=== PATIENT | male | born 1970 | race Caucasian/White ===

== ENCOUNTER 2021-08-23 13:25 | Observation (INO) ==
[2021-08-23] MEDS ORDERED: ASPIRIN 81 MG CHEW PO STA (14:21)
--- NOTE | 2021-08-23 14:21 | Emergency Department Note ---
History of Present Illness General Chief complaint: Chest Pain Stated complaint: CHEST PAIN Time Seen by Provider: 08/23/21 14:06 Source: patient History of Present Illness Provider complaint: Chest pain Onset (ago): day(s) 3 Location: chest Radiation: non-radiation Pain Consistency: + intermittent and + now resolved Maximum Pain Intensity: 10 Quality: + other (Tightness) Relieved By: + rest Exacerbated By: + other (Activity) Associated symptoms: + other (Exhaustion); no cough, no fever/chills, no nausea/vomiting or no shortness of breath This is a 51-year-old male who presents with chest discomfort intermittently for the past 3 days. He states it feels like a tightness across his chest without radiation. He rates it a 10 out of 10 in severity at its worst. Currently he states it is completely resolved. It seems to be worse with activity and better with rest. It is associated with feeling of exhaustion and fatigue. He states he felt this way 8 years ago when he had endocarditis. The cause of his endocarditis is unclear. He denies any IVDA or immunocompromise. He denies any recent illness, fever, cough or cold symptoms, shortness of breath, abdominal pain, vomiting, diarrhea or urinary symptoms. He has had no swelling to this legs. He does state that his father had heart problems starting in his late 50s and his uncle also had heart problem in his late 50s. Home Medications Medication Instructions Recorded Confirmed Type omeprazole 40 mg capsule,delayed 40 mg PO QAM 04/16/20 08/23/21 History release amitriptyline 10 mg tablet 10 mg PO HS PRN 08/23/21 08/23/21 History escitalopram oxalate 10 mg tablet 10 mg PO DAILY 08/23/21 08/23/21 History tamsulosin 0.4 mg capsule 0.4 mg PO HS 08/23/21 08/23/21 History Allergies Allergy/AdvReac Type Severity Reaction Status Date / Time No Known Allergies Allergy Verified 08/23/21 14:33 Past Med/Surg History Medical History (Updated 08/23/21 @ 21:16 by Shane Vera MD) Anxiety and depression Endocarditis GERD (gastroesophageal reflux disease) Surgical History H/O hand surgery LEFT MIDDLE FINGER PINNING History of esophagogastroduodenoscopy (EGD) History of tooth extraction Hx of vasectomy Nausea and vomiting after administration of anesthetic agent [place] teeth removed Family History Mother Family history of diabetes mellitus Social History Smoking Status: Current some day smoker Cigarettes Per Day: 2, 2-3 nights a week; Second Hand Exposure: Yes ( A CHILD); Hx Alcohol Use: Yes Alcohol type: hard liquor Hx Substance Use: No Preferred Language: Czech Communication Ability: Effective Sld Teacher Required: No Beliefs That Will Affect Care: None Current Living Situation: Spouse Current Living Situation Comment: with Feels Safe at Home: Yes Safety Concerns: Feels Safe At This Time Assistive Devices: Glasses Review of Systems See HPI for pertinent positives & negatives. and A total of 10 systems reviewed and were otherwise negative Physical Exam Vital Signs Vital Signs - 24 hr 08/23/21 13:30 08/23/21 15:21 08/23/21 15:30 Temperature 36.1 C L Temperature Source Temporal Artery Scan Pulse Rate 59 L Pulse Rate [Apical] 55 L 49 L Respiratory Rate 18 16 22 Respiratory Effort / Characteristics Non-Labored Respiratory Depth Normal Respiratory Pattern Regular Blood Pressure 141/88 H Blood Pressure [Left Arm] 138/85 135/98 Blood Pressure Mean 105 Blood Pressure Mean [Left Arm] 102 110 Blood Pressure Position Sitting Blood Pressure Position [Left Arm] Pulse Oximetry 98 97 Oxygen Delivery Method Room Air Room Air Sepsis Recent Fever Within 48 Hours No Sepsis New/Unexplained Change in Mental Status No Sepsis Action Taken by Nursing No Action Required 08/23/21 16:54 Temperature Temperature Source Pulse Rate Pulse Rate [Apical] 51 L Respiratory Rate 15 Respiratory Effort / Characteristics Non-Labored Spontaneous Respiratory Depth Normal Respiratory Pattern Regular Blood Pressure Blood Pressure [Left Arm] 141/89 H Blood Pressure Mean Blood Pressure Mean [Left Arm] 106 Blood Pressure Position Blood Pressure Position [Left Arm] Sitting Pulse Oximetry 97 Oxygen Delivery Method Room Air Sepsis Recent Fever Within 48 Hours Sepsis New/Unexplained Change in Mental Status Sepsis Action Taken by Nursing Constitutional: Vital signs reviewed. Eyes: Pupils are equal round reactive to light. Conjunctiva are noninjected. ENT: Pharynx is clear without erythema or exudate. Mucous membranes are moist. Neck supple without meningeal signs. Respiratory: Clear to auscultation bilaterally. Breath sounds are equal bilaterally. Cardiovascular: Regular rate and rhythm. No rubs or gallops. No murmurs are noted. GI: Soft, nondistended and nontender. Bowel sounds are present. Musculoskeletal: No peripheral edema. No lower extremity tenderness. Integumentary: No cyanosis. or jaundice. Neurological: The patient is awake and alert. No focal deficits. Psychiatric: Normal affect. Not anxious appearing. Course Administered Medications Enoxaparin Sodium (Enoxaparin Inj 40 Mg/0.4 Ml Syr) 40 mg SQ Q24H HELLEN Stop: 09/22/21 19:19 Last Admin: 08/23/21 20:10 Dose: 40 mg Documented by: [id number] Escitalopram Oxalate (Escitalopram Oxalate 10 Mg Tab) 10 mg PO HS HELLEN Stop: 09/22/21 20:59 Last Admin: 08/23/21 20:29 Dose: 10 mg Documented by: [id number] Tamsulosin HCl (Tamsulosin Hcl 0.4 Mg Cap) 0.4 mg PO HS HELLEN Stop: 09/22/21 20:59 Last Admin: 08/23/21 20:10 Dose: 0.4 mg Documented by: [id number] Discontinued Medications Aspirin (Aspirin 81 Mg Chew) 324 mg PO NOW STA Stop: 08/23/21 14:22 Last Admin: 08/23/21 14:50 Dose: 324 mg Documented by: [id number] Medical Decision Making Differential Diagnosis Unstable angina, [place], anxiety, GERD, endocarditis Medical Records Attestation: I reviewed the patient's medical records. I did perform a limited focused review of portions of the patient's old chart on the electronic medical record. The patient has had no recent pertinent visits to this hospital. Home Medications Current Medication List: was personally reviewed by me Laboratory Data Attestation: I reviewed the patient's lab results. Result diagrams: 08/23/21 13:48 08/23/21 13:48 Lab Results 08/23/21 08/23/21 08/23/21 Range/Units 13:48 13:48 13:48 WBC 5.99 (4.8-10.8) K/uL RBC 4.44 L (4.7-6.1) M/uL Hgb 14.2 (14.0-18.0) g/dL Hct 40.7 L (42-52) % MCV 91.7 (80-100) fL MCH 32.0 (25-34) pg MCHC 34.9 (32-36) g/dL RDW Std Deviation 44.6 (36.4-46.3) fL RDW Coeff of [place] 13.3 (11.5-14.5) % Plt Count 210 (130-400) K/uL MPV 10.5 H (7.4-10.4) fL Immature Gran % (Auto) 0.3 % Neut % (Auto) 49.0 % Lymph % (Auto) 37.2 % [place] % (Auto) 9.2 % Eos % (Auto) 3.5 % Baso % (Auto) 0.8 % Neut # (Auto) 2.93 (1.4-6.5) K/uL Lymph # (Auto) 2.23 (1.2-3.4) K/uL [place] # (Auto) 0.55 (0.11-0.59) K/uL Eos # (Auto) 0.21 (0-0.5) K/uL Baso # (Auto) 0.05 (0-0.2) K/uL Immature Gran # (Auto) 0.02 (0.00-0.02) K/uL ESR < 1 (0-20) mm/hr D-Dimer (0-500) ug/L FEU Sodium 140 (136-145) mmol/L Potassium (3.5-5.1) mmol/L Chloride 107 (98-107) mmol/L Carbon Dioxide 23 (21-32) mmol/L Anion Gap 10.0 (3-11) BUN 16 (7-18) mg/dl Creatinine 1.03 (0.6-1.4) mg/dl Est Cr Clr Drug Dosing 89.1 ml/min Est GFR ( Amer) 97.0 ml/min Est GFR (Non-Af Amer) 83.7 ml/min BUN/Creatinine Ratio 15.1 (10-20) Glucose 102 H (70-99) mg/dl Calcium 8.8 (8.5-10.1) mg/dl Total Bilirubin 0.4 (0.2-1) mg/dl AST (15-37) U/L ALT 29 (12-78) U/L Alkaline Phosphatase 69 (45-117) U/L Troponin I < 0.015 (0-0.045) ng/ml C-Reactive Protein (0-0.29) mg/dl Total Protein 6.6 (6.4-8.2) gm/dl Albumin 3.5 (3.4-5.0) gm/dl Globulin 3.1 (2.5-4.0) gm/dl Albumin/Globulin Ratio 1.1 (0.9-2) Lipase 130 (73-393) U/L COVID-19 Eval Order SARS-CoV-2 (PCR) (Negative) 08/23/21 08/23/21 08/23/21 Range/Units 13:48 13:48 14:52 WBC (4.8-10.8) K/uL RBC (4.7-6.1) M/uL Hgb (14.0-18.0) g/dL Hct (42-52) % MCV (80-100) fL MCH (25-34) pg MCHC (32-36) g/dL RDW Std Deviation (36.4-46.3) fL RDW Coeff of [place] (11.5-14.5) % Plt Count (130-400) K/uL MPV (7.4-10.4) fL Immature Gran % (Auto) % Neut % (Auto) % Lymph % (Auto) % [place] % (Auto) % Eos % (Auto) % Baso % (Auto) % Neut # (Auto) (1.4-6.5) K/uL Lymph # (Auto) (1.2-3.4) K/uL [place] # (Auto) (0.11-0.59) K/uL Eos # (Auto) (0-0.5) K/uL Baso # (Auto) (0-0.2) K/uL Immature Gran # (Auto) (0.00-0.02) K/uL ESR (0-20) mm/hr D-Dimer 270 (0-500) ug/L FEU Sodium (136-145) mmol/L Potassium (3.5-5.1) mmol/L Chloride (98-107) mmol/L Carbon Dioxide (21-32) mmol/L Anion Gap (3-11) BUN (7-18) mg/dl Creatinine (0.6-1.4) mg/dl Est Cr Clr Drug Dosing ml/min Est GFR ( Amer) ml/min Est GFR (Non-Af Amer) ml/min BUN/Creatinine Ratio (10-20) Glucose (70-99) mg/dl Calcium (8.5-10.1) mg/dl Total Bilirubin (0.2-1) mg/dl AST (15-37) U/L ALT (12-78) U/L Alkaline Phosphatase (45-117) U/L Troponin I (0-0.045) ng/ml C-Reactive Protein < 0.29 (0-0.29) mg/dl Total Protein (6.4-8.2) gm/dl Albumin (3.4-5.0) gm/dl Globulin (2.5-4.0) gm/dl Albumin/Globulin Ratio (0.9-2) Lipase (73-393) U/L COVID-19 Eval Order Covid19 at [facility] SARS-CoV-2 (PCR) (Negative) 08/23/21 Range/Units 14:52 WBC (4.8-10.8) K/uL RBC (4.7-6.1) M/uL Hgb (14.0-18.0) g/dL Hct (42-52) % MCV (80-100) fL MCH (25-34) pg MCHC (32-36) g/dL RDW Std Deviation (36.4-46.3) fL RDW Coeff of [place] (11.5-14.5) % Plt Count (130-400) K/uL MPV (7.4-10.4) fL Immature Gran % (Auto) % Neut % (Auto) % Lymph % (Auto) % [place] % (Auto) % Eos % (Auto) % Baso % (Auto) % Neut # (Auto) (1.4-6.5) K/uL Lymph # (Auto) (1.2-3.4) K/uL [place] # (Auto) (0.11-0.59) K/uL Eos # (Auto) (0-0.5) K/uL Baso # (Auto) (0-0.2) K/uL Immature Gran # (Auto) (0.00-0.02) K/uL ESR (0-20) mm/hr D-Dimer (0-500) ug/L FEU Sodium (136-145) mmol/L Potassium (3.5-5.1) mmol/L Chloride (98-107) mmol/L Carbon Dioxide (21-32) mmol/L Anion Gap (3-11) BUN (7-18) mg/dl Creatinine (0.6-1.4) mg/dl Est Cr Clr Drug Dosing ml/min Est GFR ( Amer) ml/min Est GFR (Non-Af Amer) ml/min BUN/Creatinine Ratio (10-20) Glucose (70-99) mg/dl Calcium (8.5-10.1) mg/dl Total Bilirubin (0.2-1) mg/dl AST (15-37) U/L ALT (12-78) U/L Alkaline Phosphatase (45-117) U/L Troponin I (0-0.045) ng/ml C-Reactive Protein (0-0.29) mg/dl Total Protein (6.4-8.2) gm/dl Albumin (3.4-5.0) gm/dl Globulin (2.5-4.0) gm/dl Albumin/Globulin Ratio (0.9-2) Lipase (73-393) U/L COVID-19 Eval Order SARS-CoV-2 (PCR) NEGATIVE (Negative) Imaging Data Radiologist's Impression: Chest X-Ray 08/23/21 14:18 XR chest 1V portable CLINICAL HISTORY: Atypical chest pain TECHNIQUE: Single frontal radiograph of the chest was obtained. Comparison: Comparison is made to chest one view 03/21/2012 FINDINGS: No lines and tubes are seen. The cardiomediastinal silhouette is normal. The lungs are clear. No evidence of pleural effusion or pneumothorax. IMPRESSION: No acute chest disease. ACT 112: Negative or not required by law. Electronically signed by: Jules Wells M.D. 08/23/2021 2:48 PM ECG Data Attestation: I personally reviewed and interpreted this ECG as follows: Indication: + chest pain Rate (beats per minute): 54 Rhythm: + sinus bradycardia ECG [place]: + Normal ECG ST segments: no ST elevation ECG Findings: no PVCs Comparison ECG Date: from (April 15, 2020) Change: no significant change MDM Narrative I did evaluate the patient as noted above. Patient is presenting with chest tightness intermittently for the past 3 days. It is worse with activity. He states that he feels exhausted similar to when he had endocarditis 8 years ago. IV access was established. I did place an order for continuous cardiac monitoring. The monitor showed sinus bradycardia at a rate of 59 bpm. did order and personally review the patient's 12-lead EKG as described above. He has no acute ischemic findings. I did order and personally reviewed the images of the patient's chest x-ray as described above. There is no evidence of pneumonia. I did order blood cultures. He was given aspirin p.o. I did order and review the patient's blood work as noted in the electronic medical record. CBC does not demonstrate leukocytosis or left shift. ESR is negative. Electrolytes are unremarkable. Troponin is negative. C-reactive protein is negative. LFTs and lipase are unremarkable. Covid screening testing is neg ative. I did reassess the patient. I did discuss the test results with him. He will be hospitalized for repeat cardiac biomarkers and further evaluation. I did discuss the case with the hospitalist and field nurse case manager. Impression & Plan Acute chest pain Discharge Plan Visit Data Chief Complaint: Chest Pain Stated Complaint: CHEST PAIN ED Provider: Shane Vera Discharge Problem: Acute chest pain Patient Disposition: Admitted As Inpatient Discharge Instructions Interventions: ED Discharge Assessment Last Done: 08/23/21 18:27
[2021-08-23 14:26] LABS: Basophils # (auto) 0.05 K/uL (0-0.2); Basophils % (auto) 0.8 %; Eosinophils # (auto) 0.21 K/uL (0-0.5); Eosinophils % (auto) 3.5 %; Hematocrit (blood only) 40.7 % (42-52); Hemoglobin 14.2 g/dL (14.0-18.0); Immature Granulocytes # (auto) 0.02 K/uL (0.00-0.02); Immature Granulocytes % (auto) 0.3 %; Lymphocytes # (auto) 2.23 K/uL (1.2-3.4); Lymphocytes % (auto) 37.2 %; Mean Corpuscular Hgb Conc 34.9 g/dL (32-36); Mean Corpuscular Volume 91.7 fL (80-100); Mean Platelet Volume 10.5 fL (7.4-10.4); Monocytes # (auto) 0.55 K/uL (0.11-0.59); Monocytes % (auto) 9.2 %; Neutrophils # (auto) 2.93 K/uL (1.4-6.5); Platelet Count 210 K/uL (130-400); RDW Coefficient of Variation 13.3 % (11.5-14.5); RDW Standard Deviation 44.6 fL (36.4-46.3); Red Blood Count 4.44 M/uL (4.7-6.1); White Blood Count 5.99 K/uL (4.8-10.8)
--- NOTE | 2021-08-23 14:49 | XRay Report ---
XR chest 1V portable CLINICAL HISTORY: Atypical chest pain TECHNIQUE: Single frontal radiograph of the chest was obtained. Comparison: Comparison is made to chest one view 03/21/2012 FINDINGS: No lines and tubes are seen. The cardiomediastinal silhouette is normal. The lungs are clear. No evid ence of pleural effusion or pneumothorax. IMPRESSION: No acute chest disease. ACT 112: Negative or not required by law. Electronically signed by: Jules Wells M.D. 08/23/2021 2:48 PM
[2021-08-23 15:52] LABS: Alanine Aminotransferase 29 U/L (12-78); Albumin Globulin Ratio 1.1 (0.9-2); Albumin Level 3.5 gm/dl (3.4-5.0); Alkaline Phosphatase 69 U/L (45-117); BUN Creatinine Ratio 15.1 (10-20); Bilirubin,Total 0.4 mg/dl (0.2-1); Blood Urea Nitrogen 16 mg/dl (7-18); Calcium 8.8 mg/dl (8.5-10.1); Carbon Dioxide 23 mmol/L (21-32); Chloride 107 mmol/L (98-107); Creatinine Clr Calc Pharmacy 89.1 ml/min; Est GFR (Non-African American) 83.7 ml/min; Globulin 3.1 gm/dl (2.5-4.0); Glucose 102 mg/dl (70-99); Lipase 130 U/L (73-393); Sodium 140 mmol/L (136-145); Total Protein 6.6 gm/dl (6.4-8.2); Troponin I < 0.015 ng/ml (0-0.045)
--- NOTE | 2021-08-23 16:16 | History & Physical Report ---
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 Feels similar to his prior episode of endocarditis. Does not have history of immunocompromise or drug abuse. Chest pain, per patient history of similar feeling with endocarditis No leukocytosis, afebrile Troponin negative EKG without acute findings Covid negative Afebrile CRP negative CXR: No acute chest disease. EKG: Sinus bradycardia without ST segment or T wave changes. QTc 403, [place] 194 Blood cultures pending given history of endocarditis TTE pending given history of endocarditis question underlying valvular disease, although this is not alone sufficient to rule out endocarditis if high suspicion Received full dose aspirin x1 in ER - D-Dimer negative ? Deep musculoskeletal given pain in chest with resistedflexion of arm, although no pain on palpation Follow for cardiac observation, and TTE as above (2) Anxiety and depression: Plan: Continue amitriptyline 10 mg p.o. nightly Continue Lexapro 10 mg p.o. daily (3) Nocturia: Plan: Continue Flomax 0.4 mg p.o. nightly Denies history of prostate cancer, follows as outpatient No acute management at this time (4) GERD (gastroesophageal reflux disease): Plan: Continue omeprazole 40 mg p.o. every morning, converted to Protonix while inpatient (5) History of endocarditis: Plan: Acute evaluation as above Patient reports a history of endocarditis with extensive work-up, ultimately this developed during a period of neutropenia and patient was told it was likely that he had a tickborne illness resulting in neutropenia and spontaneous endocarditis. History of Present Illness Primary Care Provider: Santo Wynn Jr, DO [place] is a 51-year-old male with a past medical history of Pt reports early cardiac disease in father. 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 Comes and goes intermittently. Exertion seems to trigger/make it worse. Exhausted and fatigued with no energy for a few days. No diaphoresis. Feels similar to his prior endocarditis. Denies cough, SoB, COVID exposures but does bowl with friends. COVID negative. "I dont feel sick, just tired and the pain comes and goes.' Palpatio nof L upper chest does not reportudce some symptoms. Works in [employer], denies injuries/trauma Sharp pain in the back Medical History: Reviewed Medications: Reviewed Surgical History: Reviewed Allergies: Reviewed Social History: Rare social tobacco use. Alcohol 6-8oz per night daily. No recreational drug use. No hx of withdrawal. Code Status: Full Code Allergies Allergy/AdvReac Type Severity Reaction Status Date / Time No Known Allergies Allergy Verified 08/23/21 14:33 Home Medications Medication Instructions Recorded Confirmed Type omeprazole 40 mg capsule,delayed 40 mg PO QAM 04/16/20 08/23/21 History release amitriptyline 10 mg tablet 10 mg PO HS PRN 08/23/21 08/23/21 History escitalopram oxalate 10 mg tablet 10 mg PO DAILY 08/23/21 08/23/21 History tamsulosin 0.4 mg capsule 0.4 mg PO HS 08/23/21 08/23/21 History Past Med/Surg History Medical History (Updated 08/23/21 @ 20:56 by Aravind Huertas MD) Anxiety and depression Endocarditis GERD (gastroesophageal reflux disease) Surgical History H/O hand surgery LEFT MIDDLE FINGER PINNING History of esophagogastroduodenoscopy (EGD) History of tooth extraction Hx of vasectomy Nausea and vomiting after administration of anesthetic agent [place] teeth removed Family History Mother Family history of diabetes mellitus Social History Smoking Status: Current some day smoker Cigarettes Per Day: 2, 2-3 nights a week; Second Hand Exposure: Yes ( A CHILD); Hx Alcohol Use: Yes Alcohol type: hard liquor Hx Substance Use: No Preferred Language: Guyanese Communication Ability: Effective General Administrator Required: No Beliefs That Will Affect Care: None Current Living Situation: Spouse Current Living Situation Comment: with Feels Safe at Home: Yes Safety Concerns: Feels Safe At This Time Assistive Devices: Glasses Review of Systems Review of Systems: All systems reviewed & are unremarkable except as noted in HPI & below Physical Exam Physical Exam: General: A&Ox3. NAD. Cooperative. HEENT: Atraumatic, normocephalic. Visual acuity and hearing grossly intact. Pupils equal and reactive to light and accommodation. Pulm: CTAB A&P. -wheezes, -rales, -rhonchi. Symmetrical chest rise. No increase work of breathing. No respiratory distress. Cardiac: RRR, -mrg. Radial pulses intact and symmetrical. Chest pain is not reproducible on palpation. Abdominal: Nontender, nondistended, soft. BS present. Extremities: No [place] spots/[place] lesions. Distal extremity strength including wet mix operator strength, elbow flexion, ankle plantarflexion/dorsiflexion 5/5 and symmetrical. Sensation to soft touch intact in hands and feet bilaterally. Sen sation temperature intact in hands and feet bilaterally. PT and radial pulse intact and symmetrical. Resisted elbow flexion of the left arm does reproduce some pain in the left chest. Results & Data Results & Data ([facility]) Vital Signs (Past 12 Hours) Vital Signs Temp Pulse Pulse Resp BP BP Pulse Ox 08/23/21 15:30 49 L 22 135/98 08/23/21 15:21 55 L 16 138/85 97 08/23/21 13:30 36.1 C L 59 L 18 141/88 H 98 PG Care Time/CCT Total # of Minutes Spent Total Time Spent with Patient: Total time spent is greater than 50% in coordination of care (as documented) at patient's floor/unit and/or counseling patient: Coding Level of Care Code INT OBSERVATION CARE 50M LVL 2 Diagnoses Chest pain R07.9 Anxiety and depression F41.9; F32.A Nocturia R35.1 GERD (gastroesophageal reflux disease) K21.9 History of endocarditis Z86.79
[2021-08-23 16:54] LABS: D Dimer 270 ug/L FEU (0-500)
[2021-08-23] MEDS ORDERED: ACETAMINOPHEN 325 MG TAB PO PRN (19:20)
[2021-08-23] MEDS ORDERED: ENOXAPARIN INJ 40 MG/0.4 ML SYR SQ SCH (19:20)
[2021-08-23] MEDS ORDERED: AMITRIPTYLINE HCL 10 MG TAB PO PRN (19:20)
[2021-08-23] MEDS ORDERED: FLUARIX QUADRIVALENT 0.5 ML SYR IM ONE (19:43)
[2021-08-23] MEDS ORDERED: TAMSULOSIN HCL 0.4 MG CAP PO SCH (21:00)
[2021-08-23] MEDS ORDERED: ESCITALOPRAM OXALATE 10 MG TAB PO SCH (21:00)
[2021-08-24 00:51] LABS: Lyme Ab IgG w/WB Rflx Negative (Negative)
[2021-08-24 00:53] LABS: Lyme Ab IgM w/WB Rflx Equivocal (Negative)
[2021-08-24 06:36] LABS: Basophils # (auto) 0.05 K/uL (0-0.2); Basophils % (auto) 0.8 %; Eosinophils % (auto) 3.4 %; Hematocrit (blood only) 41.6 % (42-52); Hemoglobin 14.2 g/dL (14.0-18.0); Immature Granulocytes # (auto) 0.03 K/uL (0.00-0.02); Immature Granulocytes % (auto) 0.5 %; Lymphocytes % (auto) 36.9 %; Mean Corpuscular Hemoglobin 31.6 pg (25-34); Mean Corpuscular Hgb Conc 34.1 g/dL (32-36); Mean Corpuscular Volume 92.4 fL (80-100); Mean Platelet Volume 10.3 fL (7.4-10.4); Monocytes % (auto) 8.4 %; Neutrophils # (auto) 2.98 K/uL (1.4-6.5); Platelet Count 212 K/uL (130-400); RDW Coefficient of Variation 13.3 % (11.5-14.5); RDW Standard Deviation 44.8 fL (36.4-46.3); White Blood Count 5.96 K/uL (4.8-10.8)
[2021-08-24 07:02] LABS: BUN Creatinine Ratio 14.6 (10-20); Blood Urea Nitrogen 16 mg/dl (7-18); Calcium 8.9 mg/dl (8.5-10.1); Carbon Dioxide 26 mmol/L (21-32); Chloride 108 mmol/L (98-107); Creatinine Clr Calc Pharmacy 85.3 ml/min; Est GFR (African American) 92.7 ml/min; Glucose 112 mg/dl (70-99); Sodium 140 mmol/L (136-145)
[2021-08-24 07:07] LABS: Troponin I < 0.015 ng/ml (0-0.045)
[2021-08-24] MEDS ORDERED: ESCITALOPRAM OXALATE 10 MG TAB PO SCH (09:00)
--- NOTE | 2021-08-24 09:24 | Hospitalist Progress Note ---
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 Feels similar to his prior episode of endocarditis. Does not have history of immunocompromise or drug abuse. Chest pain, per patient history of similar feeling with endocarditis No leukocytosis, afebrile Troponin negative EKG without acute findings Covid negative Afebrile CRP negative CXR: No acute chest disease. EKG: Sinus bradycardia without ST segment or T wave changes. QTc 403, [place] 194 Blood cultures pending given history of endocarditis TTE pending given history of endocarditis question underlying valvular disease, although this is not alone sufficient to rule out endocarditis if high suspicion Received full dose aspirin x1 in ER - D-Dimer negative ? Deep musculoskeletal given pain in chest with resisted flexion of arm, although no pain on palpation Follow for cardiac observation, and TTE as above (2) Anxiety and depression: Plan: Continue amitriptyline 10 mg p.o. nightly Continue Lexapro 10 mg p.o. daily (3) Nocturia: Plan: Continue Flomax 0.4 mg p.o. nightly Denies history of prostate cancer, follows as outpatient No acute management at this time (4) GERD (gastroesophageal reflux disease): Plan: Continue omeprazole 40 mg p.o. every morning, converted to Protonix while inpatient (5) History of endocarditis: Plan: Acute evaluation as above Patient reports a history of endocarditis with extensive work-up, ultimately this developed during a period of neutropenia and patient was told it was likely that he had a tickborne illness resulting in neutropenia and spontaneous endocarditis. Admission and Anticipated Discharge Date Admission Date: August 23, 2021 Results & Data Results & Data ([facility]) Vital Signs (Past 12 Hours) Vital Signs Temp Pulse Pulse Pulse Resp BP BP 08/24/21 09:00 54 L 08/24/21 08:00 98.1 F 54 L 18 103/57 L 08/24/21 03:04 97.7 F 60 18 121/77 08/23/21 23:26 54 L 08/23/21 23:12 97.7 F 64 18 118/79 Pulse Ox Pulse Ox 08/24/21 09:00 97 08/24/21 08:00 97 08/24/21 03:04 97 08/23/21 23:26 08/23/21 23:12 99 PG Care Time/CCT Total # of Minutes Spent Total Time Spent with Patient: Total time spent is greater than 50% in coordination of care (as documented) at patient's floor/unit and/or counseling patient: Coding Diagnoses Chest pain R07.9 Anxiety and depression F41.9; F32.A Nocturia R35.1 GERD (gastroesophageal reflux disease) K21.9 History of endocarditis Z86.79
--- NOTE | 2021-08-24 11:01 | XCELERA ---
[id number]
--- NOTE | 2021-08-24 11:03 | Electrocardiogram Report ---
Test Reason : Blood Pressure : / mmHG Vent. Rate : 054 BPM Atrial Rate : 054 BPM P-R Int : 194 ms QRS Dur : 088 ms QT Int : 426 ms P-R-T Axes : 043 008 016 degrees QTc Int : 403 ms Sinus bradycardia Otherwise normal ECG When compared with ECG of 15-APR-2020 09:07, No significant change was found Confirmed by Ced Tai ([id number] on 08/24/2021 11:03:27 AM Referred By: Confirmed By:Kenneth Tai
--- NOTE | 2021-08-24 18:56 | Discharge Summary ---
Date of Service August 24, 2021 Admission HPI Per Admitting Provider Jun is a 51-year-old male with a past medical history of Pt reports early cardiac disease in father. 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 Comes and goes intermittently. Exertion seems to trigger/make it worse. Exhausted and fatigued with no energy for a few days. No diaphoresis. Feels similar to his prior endocarditis. Denies cough, SoB, COVID exposures but does bowl with friends. COVID negative. "I dont feel sick, just tired and the pain comes and goes.' Palpatio nof L upper chest does not reportudce some symptoms. Works in [employer], denies injuries/trauma Sharp pain in the back Medical History: Reviewed Medications: Reviewed Surgical History: Reviewed Allergies: Reviewed Social History: Rare social tobacco use. Alcohol 6-8oz per night daily. No recreational drug use. No hx of withdrawal. Code Status: Full Code Principal Diagnosis atypical chest pain possible Lyme disease Discharge Exam The patient appeared well Vital signs as documented. Lungs are clear to auscultation and appear unlabored Cardiac exam, Rhythm is regular.. No murmurs, rubs or gallops. Abdominal exam reveals normal bowel sounds, soft non tender, no masses Extremities are nonedematous and both pedal pulses are normal. Neurologic exam is alert and oriented, no focal loss of strength or sensation Skin is without bruises or rashes Psychologically is without concerns for anxiety or depression. Discharge Data Allergies Allergy/AdvReac Type Severity Reaction Status Date / Time No Known Allergies Allergy Verified 08/23/21 14:33 Consultations 08/23/21 16:07 ED Decision to Admit Stat Ordered Studies Echocardiogram shows normal left ventricular function normal wall motion borderline atrial large minute normal right-sided heart pressures. Mild to moderate mitral regurgitation normal pulmonic tricuspid valves aortic valve is trileaflet no abnormality seen no pericardial abnormalities. 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 Feels similar to his prior episode of endocarditis. Does not have history of immunocompromise or drug abuse. Chest pain, echocardiogram without remark for regional wall motion abnormalities valvular disease or pericardial changes Troponin negative EKG without acute findings Covid negative Afebrile CRP negative CXR: No acute chest disease. After discussion with the patient his biggest concern was profound fatigue and fevers and chills over the last few days which reminded him of his pericarditis. Given his equivocal Lyme test this likely may be attributed to a either chronic or subacute Lyme infection. His Western blot is sent out and will be returned to his primary care provider however patient be discharged on doxycycline after discussion whether he wished for watchful waiting until his test results are back versus started doxycycline have discontinued if his test results are negative. He had no additional symptoms since his admission and he seems satisfied with this treatment plan (2) Anxiety and depression: Continue amitriptyline 10 mg p.o. nightly Continue Lexapro 10 mg p.o. daily (3) Nocturia: Continue Flomax 0.4 mg p.o. nightly Denies history of prostate cancer, follows as outpatient No acute management at this time (4) GERD (gastroesophageal reflux disease): Continue omeprazole 40 mg p.o. every morning, converted to Protonix while inpatient (5) History of endocarditis: Acute evaluation as above Patient reports a history of endocarditis with extensive work-up, ultimately this developed during a period of neutropenia and patient was told it was likely that he had a tickborne illness resulting in neutropenia and spontaneous endocarditis. Subsequent to this history starting doxycycline 100 twice daily x14 days Total Time Total Time Spent Total Time Spent (In Minutes): Discharge 30 including 2 bedside visits Discharge Plan Discharge Items Patient Disposition: Home - Self-Care Reason For Visit: CHEST PAIN Discharge Diagnosis: possible lyme disease non typical chest pain Activity: Resume your previous activity Non-emergency contact: Primary Care Provider Call non-emergency contact if: your symptoms worsen and you have a fever Follow-up/Referrals: Santo Wynn Jr, [Primary Care Provider] - 09/01/21 11:45 am Diet: Regular Addtl Attending Provider Instructions: your heart testing was normal, there is a lyme disease test that was sent away and will be back in 5-7 days with results to Dr Wynn. Please follow up with Dr Wynn in one week you will be given Doxycycline to presumptively treat a lyme infection Pending Studies at Discharge: Yes Studies:: definitive lyme testing Stand-Alone Forms: My [facility] rubberit, Smoking Cessation Medications and DC Order Prescriptions: New doxycycline hyclate 100 mg capsule 100 mg PO BID 14 Days Qty: 28 RF: 0 Continued omeprazole 40 mg Capsule,Delayed Release(Dr/Ec) 40 mg PO QAM RF: 0 tamsulosin 0.4 mg capsule 0.4 mg PO HS RF: 0 amitriptyline 10 mg tablet 10 mg PO HS PRN (Reason: Sleep) RF: 0 escitalopram oxalate 10 mg tablet 10 mg PO DAILY RF: 0 Discharge Orders: Discharge Order (Routine); Ordered 08/24/21 Ordered By: Shane Keith Admission Data Admit Date/Time: 08/23/21 17:06 Attending Provider: Shane Keith Admit Provider: Aravind Huertas Primary Care Provider: Santo Wynn Jr Other Providers: Aravind Huertas Other Interventions: Discharge Summary Assessment (RN) Last Done: 08/24/21 13:46 Coding Level of Care Code D/C DAY MANAGEMENT >30 MINS Diagnoses Chest pain R07.9 Anxiety and depression F41.9; F32.A Nocturia R35.1 GERD (gastroesophageal reflux disease) K21.9 History of endocarditis Z86.79
[2021-08-26 08:37] LABS: 18KDIGG Band NON-REACTIVE; 23KDIGG Band NON-REACTIVE; 23KDIGM Band NON-REACTIVE; 28KDIGG Band NON-REACTIVE; 30KDIGG Band NON-REACTIVE; 39KDIGG Band NON-REACTIVE; 39KDIGM Band NON-REACTIVE; 41KDIGG Band NON-REACTIVE; 41KDIGM Band NON-REACTIVE; 45KDIGG Band NON-REACTIVE; 58KDIGG Band NON-REACTIVE; 66KDIGG Band NON-REACTIVE; 93KDIGG Band NON-REACTIVE; Lyme Antibodies, WB IgG NEGATIVE (NEGATIVE); Lyme Antibodies, WB IgM NEGATIVE (NEGATIVE)
== END 2021-08-24 14:52 | disposition home or self-care (01) ==
LOC: 2N 13:25 → ED 13:25 → SUATTDRO 17:06 → 2N 18:27